=== PATIENT | female | born 1970 | race Caucasian/White ===

== ENCOUNTER 2022-07-27 13:56 | Emergency (ER) | payer MEDICAID ==
[2022-07-27 16:40] LABS: CORONAVIRUS COVID-19 NAA NEGATIVE (NEGATIVE)
[2022-07-27 19:31] VITALS: BP 126/92; PULSE 82
== END 2022-07-27 17:37 | disposition home or self-care (01) ==
LOC: JD.ED 13:56
DX: R42 Dizziness and giddiness (principal); J01.90 Acute sinusitis, unspecified; Z20.822 Contact with and (suspected) exposure to COVID-19
CPT/HCPCS: 0241U; 36415; 71045; 80053; 84484; 85025; 93005; 99285

== ENCOUNTER 2025-06-22 22:53 | Emergency (ER) | payer MEDICAID ==
[2025-06-22] MEDS ORDERED: Sodium Chloride 0.9% 10 ML Syringe FLUSH PRN (23:33)
[2025-06-23 00:02] LABS: CREATINE KINASE,CK 100.0 U/L (26-192); TROPONIN I HIGH SENSITIVITY 5.0 pg/mL (<=51); TSH 3.617 uIU/mL (0.358-3.74)
[2025-06-23 00:28] LABS: BASOPHILS ABSOLUTE AUTO 0.1 K/mm3 (0.0-0.2); BASOPHILS PERCENT AUTO 0.7 % (0.0-1.0); EOSINOPHILS ABSOLUTE AUTO 0.5 K/mm3 (0.0-0.4); EOSINOPHILS PERCENT AUTO 6.1 % (0.0-6.0); IMMATURE GRAN ABSOLUTE AUTO 0.02 K/mm3 (0.00-0.05); IMMATURE GRAN PERCENT AUTO 0.3 % (0.0-0.4); LYMPHOCYTES ABSOLUTE AUTO 2.2 K/mm3 (1.0-4.8); LYMPHOCYTES PERCENT AUTO 29.1 % (24.0-44.0); MEAN PLATELET VOLUME 9.1 fl (9.4-12.3); MONOCYTES ABSOLUTE AUTO 0.7 K/mm3 (0.0-0.8); MONOCYTES PERCENT AUTO 9.8 % (0.0-8.0); NEUTROPHILS ABSOLUTE AUTO 4.1 K/mm3 (1.8-7.7); NEUTROPHILS PERCENT AUTO 54.0 % (41.0-71.0); NRBC ABSOLUTE 0.00 (0.00-0.02); NRBC PERCENT 0.0 % (0.0-0.2); PLATELET COUNT,PLT 282 K/mm3 (150-400); RED BLOOD CELL COUNT 4.61 M/mm3 (4.10-5.30); WHITE BLOOD CELL COUNT,WBC 7.56 K/mm3 (3.9-11.3)
[2025-06-23 00:31] LABS: A/G RATIO 1.0 (1-2); ALANINE AMINOTRANSFERASE,ALT 90.0 U/L (14-59); ASPARTATE AMNIOTRANSFERASE,AST 44.0 U/L (15-37); BILIRUBIN TOTAL 0.4 mg/dL (0.2-1.0); BLOOD UREA NITROGEN,BUN 11.0 mg/dL (7-18); CARBON DIOXIDE,CO2 31.0 mEq/L (21-32); CHLORIDE,CL 98.0 mEq/L (98-107); CREATININE 0.7 mg/dL (0.55-1.02); EST CRCL DRUG DOSING (CG) 88.3 mL/min; ESTIMATED GFR 102.0 mL/min (>60); GLUCOSE RANDOM 148.0 mg/dL (70-99); POTASSIUM,K 2.9 mEq/L (3.5-5.1); PROTEIN TOTAL,TP 7.8 g/dl (6.4-8.2); SODIUM,NA 138.0 mEq/L (136-145)
[2025-06-23 01:05] LABS: APPEARANCE,URINE CLEAR (Clear); GLUCOSE,URINE NEGATIVE (Negative); OCCULT BLOOD,URINE NEGATIVE (Negative)
[2025-06-23] MEDS: Potassium Chloride 20 MEQ Tab.ER PO ONE (01:08)
[2025-06-23 01:31] VITALS: BP 141/88; PULSE 86
== END 2025-06-23 00:25 | disposition home or self-care (01) ==
LOC: JD.ED 22:53
DX: R07.89 Other chest pain (principal); E87.6 Hypokalemia; Z79.899 Other long term (current) drug therapy
CPT/HCPCS: 36415; 80053; 81003; 82550; 84443; 84484; 85025; 93005; 99285; A9270; J7030